=== PATIENT | female | born 2000 | race African-American/Black ===

== ENCOUNTER 2020-03-10 18:22 | Emergency (ER) | payer BC, MEDICAID ==
--- NOTE | 2020-03-10 18:48 | ER Document Report ---
ED Medical Screen (RME) - General Chief Complaint: Pain All Over Stated Complaint: JOINT PAIN Time Seen by Provider: 03/10/20 18:41 Primary Care Provider: LYNDSEY PHELPS MD [Primary Care Provider] - Follow up as needed TRAVEL OUTSIDE OF THE [place] IN LAST 30 DAYS: No - HPI Notes: 03/10/20 18:46 19-year-old female presents emergency room with complaints of "every joint in my body hurts" for the last 5 days. Tried [id number] Tylenol and Aleve without any relief. Denies any new medications foods or travel. Denies having a history of lupus, MS, gout, any autoimmune disorder. Denies any family history of lupus, MS, or any autoimmune disorder. Patient is not on any medications. Last menstrual cycle was February 10, 2020. Denies any rashes. Non- smoker. Denies any chest pain, shortness of breath, fever or chills. Patient states she feels most pain in her knees and in her joints. Denies any trauma. I have greeted and performed a rapid initial assessment of this patient. A comprehensive ED assessment and evaluation of the patient, analysis of test results and completion of the medical decision making process will be conducted by additional ED providers. PHYSICAL EXAMINATION: GENERAL: Well-appearing, well-nourished and in no acute distress. NECK: Normal range of motion CV: s1, s2 regular LUNGS: No respiratory distress Musculoskeletal: Normal range of motion NEUROLOGICAL: Normal speech, normal gait. SKIN: Warm, Dry, normal turgor, no rashes or lesions noted. - Related Data Allergies/Adverse Reactions: No Known Allergies Allergy (Verified 04/11/16 19:55) Past Medical History - Social History Chew tobacco use (# tins/day): No Frequency of alcohol use: None Drug Abuse: None - Immunizations Immunizations up to date: Yes Physical Exam - Vital signs Vitals: Temp Pulse Resp BP Pulse Ox 99.4 F 104 H 20 135/96 H 97 03/10/20 18:26 03/10/20 18:26 03/10/20 18:26 03/10/20 18:26 03/10/20 18:26 Course - Vital Signs Vital signs: Temp Pulse Resp BP Pulse Ox 99.4 F 104 H 20 135/96 H 97 03/10/20 18:39 03/10/20 18:26 03/10/20 18:26 03/10/20 18:26 03/10/20 18:26 Doctor's Discharge - Discharge Referrals: LYNDSEY PHELPS MD [Primary Care Provider] - Follow up as needed
[2020-03-10 19:16] LABS: ABSOLUTE EOSINOPHILS # (AUTO) 0.7 10^3/uL (0.0-0.6); ABSOLUTE LYMPHOCYTES (AUTO) 0.9 10^3/uL (0.5-4.7); ABSOLUTE MONOCYTES (AUTO) 1.1 10^3/uL (0.1-1.4); ABSOLUTE NEUT (AUTO) 10.6 10^3/uL (1.7-8.2); BASOPHILS % (AUTO) 0.3 % (0-2); EOSINOPHILS % (AUTO) 5.4 % (0-6); HEMATOCRIT 37.7 % (36.0-47.0); HEMOGLOBIN 12.6 g/dL (12.0-15.5); MEAN CORPUSCULAR HEMOGLOBIN 24.4 pg (27.0-33.4); MEAN CORPUSCULAR HGB CONC 33.4 g/dL (32.0-36.0); MEAN CORPUSCULAR VOLUME 73 fl (80-97); MONOCYTES % (AUTO) 7.9 % (3-13); PLATELET COUNT 347 10^3/uL (150-450); RED BLOOD COUNT 5.16 10^6/uL (3.72-5.28); RED CELL DISTRIBUTION WIDTH 15.5 % (11.5-14.0); SEGMENTED NEUTROPHILS % (AUTO) 79.4 % (42-78); TOTAL CELLS COUNTED % (AUTO) 100 %; WHITE BLOOD COUNT 13.4 10^3/uL (4.0-10.5)
[2020-03-10 19:21] LABS: APPEARANCE,URINE CLEAR; BILIRUBIN,URINE NEGATIVE (NEGATIVE); COLOR,URINE YELLOW; GLUCOSE, URINE NEGATIVE (NEGATIVE); KETONES,URINE NEGATIVE (NEGATIVE); LEUKOCYTE ESTERASE,URINE NEGATIVE (NEGATIVE); NITRITE,URINE NEGATIVE (NEGATIVE); PROTEIN,URINE NEGATIVE (NEGATIVE); URINE SPECIFIC GRAVITY 1.008; UROBILINOGEN,URINE NEGATIVE mg/dL (<2.0)
[2020-03-10 19:31] LABS: ALBUMIN 3.6 g/dL (3.5-5.0); ALKALINE PHOSPHATASE 79 U/L (38-126); ANION GAP 6 (5-19); ASPARTATE AMINO TRANSFERASE 31 U/L (14-36); BILIRUBIN,TOTAL 0.7 mg/dL (0.2-1.3); BLOOD UREA NITROGEN 11 mg/dL (7-20); CALCIUM 9.1 mg/dL (8.4-10.2); CARBON DIOXIDE 25 mmol/L (22-30); CHLORIDE 104 mmol/L (98-107); CREATINE KINASE 222 U/L (30-135); GLUCOSE 100 mg/dL (75-110); POTASSIUM 4.5 mmol/L (3.6-5.0); TOTAL PROTEIN 7.2 g/dL (6.3-8.2); URIC ACID 7.7 mg/dL (2.5-6.2)
[2020-03-10 19:53] LABS: ERYTHROCYTE SEDIMENTATION RATE 64 mm/hr (0-20)
[2020-03-10] MEDS ORDERED: INDOMETHACIN 25 MG CAPSULE PO ONE (21:38)
[2020-03-10] MEDS ORDERED: COLCHICINE 0.6 MG TABLET PO ONE (21:39)
--- NOTE | 2020-03-10 21:39 | ER Document Report ---
ED General - General Chief Complaint: Pain All Over Stated Complaint: JOINT PAIN Time Seen by Provider: 03/10/20 18:41 Primary Care Provider: LYNDSEY PHELPS MD [Primary Care Provider] - Follow up as needed TRAVEL OUTSIDE OF THE [place] IN LAST 30 DAYS: No - HPI Notes: Chief complaint: Joint pain History of present illness: Previously healthy 19-year-old female taking no regular medications with no known allergies presents with 1 to 2-week history insidious onset pain in multiple joints although symptoms most prominent in hips and knees. There is no one dominant joint which is involved. She denies fever chills. She denies any recent tick exposure. She denies any known history of gout and thinks it may be some people in her family with this disorder. Family history is negative for collagen vascular diseases. - Related Data Allergies/Adverse Reactions: No Known Allergies Allergy (Verified 04/11/16 19:55) Past Medical History - General Information source: Patient, [facility] Records - Social History Smoking Status: Never Smoker Chew tobacco use (# tins/day): No Frequency of alcohol use: None Drug Abuse: None Family History: Other - Multiple family members have same complaints. - Immunizations Immunizations up to date: Yes Review of Systems - Review of Systems Notes: Constitutional: Negative for fever. HENT: Negative for sore throat. Eyes: Negative for visual changes. Cardiovascular: Negative for chest pain. Respiratory: Negative for shortness of breath. Gastrointestinal: Negative for abdominal pain, vomiting or diarrhea. Genitourinary: Negative for dysuria. Musculoskeletal: Per HPI. Skin: Negative for rash. Neurological: Negative for headaches, weakness or numbness. 10 point ROS negative except as marked above and in HPI. Physical Exam - Vital signs Vitals: Temp Pulse Resp BP Pulse Ox 99.4 F 104 H 20 135/96 H 97 03/10/20 18:26 03/10/20 18:26 03/10/20 18:26 03/10/20 18:26 03/10/20 18:26 Notes: GENERAL: Morbidly obese female patient appearing in no acute distress. SKIN: Good turgor no rashes. HEAD: Normocephalic atraumatic. EYES: PERRLA. EOMI. Conjunctivae and sclerae clear. EARS: CANALS AND TMS CLEAR. NOSE: CLEAR. MOUTH: Moist mucosa. Good dentition. No stridor or edema. No drooling. NECK: Supple. No masses or thyromegaly. No adenopathy. Carotids 2+ without bruits. No JVD. BACK: Symmetrical without tenderness. CHEST: Respirations unlabored. Breath sounds clear and symmetrical. HEART: Regular rhythm. No murmur gallop or rub. ABDOMEN: Soft nontender without masses, organomegaly or rebound. Bowel sounds normally active. No bruits. GENITALIA: Deferred. EXTREMITIES: She has mild tenderness of multiple joints. No effusions are appreciated. There is no obvious redness or synovitis. No edema. No calf tenderness. Cap refill less than 1.5 seconds. Dorsalis pedis and posterior tibial pulses 3+ and symmetrical. NEUROLOGICAL: GCS 15. Alert and oriented x3. Normal gait. Fluent speech. Cranial nerves II through XII intact. Sensorimotor and cerebellar normal. Normal tone. PSYCHIATRIC: Appropriate affect. Course - Re-evaluation Re-evalutation: 03/10/20 21:39 Uric acid and C-reactive protein both substantially elevated. WBC is 13.5. Patient is afebrile. She is quite morbidly obese. I think she probably has gouty arthritis. We going to give her a dose of indomethacin and colchicine here prescribe same for home. We will refer her for establishment of care with primary care doctor and further evaluation with possible subsequent referral to a forestry biology specialist. I also note that her blood pressure somewhat elevated and this will need reevaluation by primary care provider. Findings, clinical impression and plan of treatment have been discussed with patient/family. Understanding of current findings and recommendations has been acknowledged by them and there is agreement regarding disposition and follow-up. - Vital Signs Vital signs: Temp Pulse Resp BP Pulse Ox 99.4 F 104 H 20 135/96 H 97 03/10/20 18:39 03/10/20 18:26 03/10/20 18:26 03/10/20 18:26 03/10/20 18:26 - Laboratory Result Diagrams: 03/10/20 18:57 03/10/20 18:57 Laboratory results interpreted by me: 03/10/20 03/10/20 18:57 18:57 WBC 13.4 H MCV 73 L MCH 24.4 L RDW 15.5 H Lymph % (Auto) 7.0 L Absolute Neuts (auto) 10.6 H Absolute Eos (auto) 0.7 H Seg Neutrophils % 79.4 H ESR 64 H Sodium 135.3 L Uric Acid 7.7 H Creatine Kinase 222 H C-Reactive Protein 70.0 H Discharge - Discharge Clinical Impression: Acute polyarthritis Condition: Stable Disposition: HOME, SELF-CARE Additional Instructions: See primary care provider for follow-up at your earliest convenience. You will require further evaluation which may include referral to an arthritis specialist (forestry biology specialist). Prescriptions: Colchicine 0.6 mg PO BID 30 Days #60 capsule Indomethacin [Indocin 50 mg Capsule] 50 mg PO TID 10 Days #30 capsule Forms: Elevated Blood Pressure Referrals: LYNDSEY PHELPS MD [Primary Care Provider] - Follow up as needed [facility] [Provider Group] - Follow up as needed
[2020-03-10 21:56] VITALS: BP 137/71
== END 2020-03-10 21:54 | disposition home or self-care (01) ==
LOC: ER 18:22
DX: M13.0 Polyarthritis, unspecified (principal); M25.551 Pain in right hip; M25.552 Pain in left hip; M25.561 Pain in right knee; M25.562 Pain in left knee; E66.01 Morbid (severe) obesity due to excess calories
CPT/HCPCS: 99283; 36415; 82550; 84550; 85025; 85652; 81025; 86140; 80053; 81001; J3490